=== PATIENT | female | born 1955 | race Caucasian/White ===

== ENCOUNTER 2017-11-25 21:13 | Inpatient (IN) | payer MEDICARE, MEDICAID ==
--- NOTE | 2017-11-25 21:36 | ED Physician Chart ---
ED Chief Complaint/HPI - Patient Information Date Seen:: 11/25/17 Time Seen:: 21:20 Chief Complaint:: agitation and confusion History of Present Illness:: Patient has been exhibiting increased agitation and confusion [facility]. Allergies:: Allergies Allergy/AdvReac Type Severity Reaction Status Date / Time No Known Allergies Allergy Verified 01/24/16 17:48 Vitals:: Vital Signs - 8 hr 11/25/17 21:15 Temp 98.3 F HR 75 RR 18 O2 Sat % 97 Review:: Transfer documents Reviewed ED Review of Systems - Review of Systems General/Constitutional: No fever, No chills, No weight loss, No weakness, No diaphoresis, No edema, No loss of appetite Skin: No skin lesions, No rash, No bruising Head: No headache, No light-headedness Eyes: No loss of vision, No pain, No diplopia ENT: No earache, No nasal drainage, No sore throat, No tinnitus Neck: No neck pain, No swelling, No thyromegaly, No stiffness, No mass noted Cardio Vascular: No chest pain, No palpitations, No PND, No orthopnea, No edema Pulmonary: No SOB, No cough, No sputum, No wheezing GI: No nausea, No vomiting, No diarrhea, No pain, No melena, No hematochezia, No constipation, No hematemesis G/U: No dysuria, No frequency, No hematuria Musculoskeletal: No bone or joint pain, No back pain, No muscle pain Endocrine: No polyuria, No polydipsia Psychiatric: No prior psych history, No depression, No anxiety, No suicidal ideation, Other (agitation) Hematopoietic: No bruising, No lymphadenopathy Allergic/Immuno: No urticaria, No angioedema Neurological: No syncope, No focal symptoms, No weakness, No paresthesia, No headache, No seizure, No dizziness, Confusion, No vertigo ED Past Medical History - Past Medical History Past Medical History: Other (psychosis; Thurmond's chorea; COPD; variety; depression; insomnia) Family History: Other (unavailable) Social History: Care Facility Surgical History: other (unavailable) Psychiatricy History: Depression Medication: Reviewed Family Medical History - Family Member Mother History Unknown: Yes Ethnicity: Non- Living Status: ED Physical Exam - Physical Examination General/Constitutional: Awake Other Gen/Cons comments:: Chronically ill-appearing; restless; nonverbal Head: Atraumatic Other Eyes comments:: Left enucleation Skin: No rash ENMT: External ears, nose nl Other ENMT comments:: Edentulous Neck: No nuchal rigidity Respiratory: Nl effort/Exclusion Cardio Vascular: RRR, No murmur, gallop, rubs GI: No tenderness/rebounding/guarding, Nondistended Extremities: No tenderness or effusion Neuro/Psych: No focal deficits ED Labs/Radiology/EKG Results - Lab Results Results: Laboratory Results - last 24 hr 11/25/17 11/25/17 22:39 22:39 WBC 5.6 RBC 4.11 Hgb 12.8 Hct 37.4 L MCV 90.9 MCH 31.2 H MCHC Differential 34.3 RDW 13.6 Plt Count 271 MPV 7.4 Neutrophils % 45.4 Lymphocytes % 33.9 Monocytes % 12.5 H Eosinophils % 7.5 H Basophils % 0.7 Sodium 138 Potassium 4.3 Chloride 106 Carbon Dioxide 28.0 Anion Gap 8.3 BUN 23 Creatinine 0.3 L Est GFR ( Amer) > 60.0 Est GFR (Non-Af Amer) > 60.0 BUN/Creatinine Ratio 76.7 Glucose 108 H Calcium 9.4 Total Bilirubin 0.2 L AST 19 ALT 23 Alkaline Phosphatase 59 Total Protein 6.7 Albumin 3.8 Globulin 2.9 Albumin/Globulin Ratio 1.3 Triglycerides 176 H Cholesterol 167 LDL Cholesterol Direct 100 HDL Cholesterol 44 - EKG Interpretations Rate & Rhythm: normal sinus rhythm with a rate of 79 [place]: normal axis Comments:: Early repolarization ED Septic Shock - . Is Septic Shock (SBP<90, OR Lactate>4 mmol\L) present?: No - <6hrs of presentation: Vital Signs: Vital Signs - 8 hr 11/25/17 21:15 Temp 98.3 F HR 75 RR 18 O2 Sat % 97 ED Reassessment (Disposition) - Reassessment Reassessment Condition:: Unchanged - Diagnosis Diagnosis:: Thurmond's chorea; agitation - Patient Disposition Admitted to:: [facility] Admitting Medical Physician:: Jay Donis Admitting Psych Physician:: Regla Pretty Condition at Disposition:: Stable, Unchanged
[2017-11-25 22:48] LABS: % BASOPHILS 0.7 % (0.0-2.0); % EOSINOPHILS 7.5 % (0.0-5.0); % LYMPHOCYTES 33.9 % (20.0-50.0); % MONOCYTES 12.5 % (2.0-10.0); % NEUTROPHILS 45.4 % (40.0-80.0); EOSINOPHILE ABSOLUTE 0.4 Th/cmm (0.1-0.4); HEMATOCRIT 37.4 % (41.0-60); HEMOGLOBIN 12.8 gm/dL (12-16); LYMPHOCYTE ABSOLUTE 1.9 Th/cmm (1.5-3.0); MEAN CELL VOLUME 90.9 fl (81-100); MEAN CORPUSCULAR HEMOGLOBIN 31.2 pg (27.0-31.0); MEAN CORPUSCULAR HGB CONC 34.3 pg (28.0-36.0); MEAN PLATELET VOLUME 7.4 fl; MONOCYTE ABSOLUTE 0.7 Th/cmm (0.3-1.0); NEUTROPHILE ABSOLUTE 2.6 Th/cmm (1.8-8.0); PLATELET COUNT 271 Th/cmm (150-400); RED BLOOD COUNT 4.11 Mil/cmm (3.80-5.10); RED CELL DISTRIBUTION WIDTH 13.6 % (11.5-20.0); WHITE BLOOD COUNT 5.6 Th/cmm (4.8-10.8)
[2017-11-25 23:04] LABS: ALB/GLOB RATIO 1.3 (1.0-1.8); ALBUMIN 3.8 gm/dL (3.7-5.3); ALKALINE PHOSPHATASE 59 U/L (34-104); ANION GAP 8.3 (7.0-16.0); BILIRUBIN,TOTAL 0.2 mg/dL (0.3-1.0); BUN - UREA NITROGEN 23 mg/dL (7-25); CALCIUM SERUM 9.4 mg/dL (8.6-10.3); CHLORIDE 106 mEq/L (98-107); CHOLESTEROL 167 mg/dL (<200); CREATININE - SERUM 0.3 mg/dL (0.6-1.2); GFR AFRICAN-AMERICAN > 60.0 ml/min (>90); GFR NON AFRICAN-AMERICAN > 60.0 ml/min; GLUCOSE 108 mg/dL (70-105); HDL -HIGH DENSITY LIPOPROTEIN 44 mg/dL (23-92); POTASSIUM SERUM 4.3 mEq/L (3.5-5.1); SGOT 19 U/L (13-39); SGPT/ALT 23 U/L (7-52); SODIUM SERUM 138 mEq/L (136-145); TOTAL PROTEIN,SERUM 6.7 gm/dL (6.0-8.3); TRIGLYCERIDES 176 mg/dL (<150)
--- NOTE | 2017-11-26 08:00 | Psychiatric Evaluation ---
DATE OF SERVICE: 11/25/2017 PSYCHIATRIC INITIAL EVALUATION AND MENTAL STATUS EXAM PATIENT'S AGE: 62. SEX: Female. PHYSICIAN: Regla Pretty M.D., M.P.H. CHIEF COMPLAINT: Agitation and irritability. HISTORY OF PRESENT ILLNESS: The patient is a 62-year-old female with a history of mental retardation. The patient was brought into the hospital because of confusion and agitation. The patient has been increasingly agitated and has been in irritable and angry mood. The patient also has been suspicious and has been paranoid and ___. She also has been unable to follow any of the staff directions and has been aggressive and has been in irritable and angry mood. The patient also has been feeling thus unable to follow any directions because of her mental disability. The patient also has been restless and has been fighting with restraints. PAST PSYCHIATRIC HISTORY: The patient has history of psychosis and agitation. PAST MEDICAL HISTORY: The patient has no major medical issues. She has history of Isaiah's chorea and COPD. SOCIAL HISTORY: The patient is in a residential. No known alcohol or drug use. ALLERGIES: No known allergies. MENTAL STATUS EXAMINATION: The patient appears her stated age. Restless. Fighting with soft restraints. Unable to answer any of the questions because of her mental disability. She is in irritable and angry mood. Actively responding. ASSESSMENT: PRIMARY DIAGNOSIS: Unspecified psychosis. SECONDARY DIAGNOSIS: Mental retardation, severe. MEDICAL DIAGNOSES: Isaiah's chorea, chronic obstructive pulmonary disease. TREATMENT PLAN: We will admit the patient to Geropsych Unit. Also, we will increase Seroquel to 100 mg 3 times a day. Also, monitor her behavior. ESTIMATED LENGTH OF STAY: 5-7 days. THE PATIENT'S STRENGTHS AND WEAKNESSES: The patient's strengths are that she has place she can return to. Weakness is her poor impulse control and irritability. AFTER DISCHARGE PLAN: The patient will return to her placement and outpatient treatment and followup. We will continue as an outpatient. [facility]# [id number]
[2017-11-26 10:24] VITALS: BP 134/74
[2017-11-26] MEDS ORDERED: Maalox 30 mL Cup PO PRN (10:26)
[2017-11-26] MEDS ORDERED: Magnesium Hydroxide (MOM) 30 mL UDC PO PRN (10:26)
[2017-11-26] MEDS ORDERED: guaiFENesin 200 MG/10 ML UDC PO PRN (10:32)
[2017-11-26] MEDS ORDERED: Albuterol Nebulizer 2.5mg/3mL HHN PRN ×2 (10:32)
[2017-11-26 21:04] LABS: A1C % 6.7 % (4.0-6.0)
--- NOTE | 2017-11-26 23:12 | History & Physical ---
ADMIT DATE: 11/26/2017 REASON FOR ADMISSION: Psychiatric disorder. HISTORY OF PRESENT ILLNESS: This is a 62-year-old female with underlying history of [place] chorea, asthma, GERD, mental disorder, and dementia; admitted for evaluation of underlying psychiatric illness by Dr. Pretty. Dr. Pretty requested medical H and P on this patient. During my evaluation, the patient was extremely confused, trying to undress herself repeatedly in spite of floor staff effort to put the clothes back. Unable to communicate at all or get any meaningful history from her. Most of the history obtained through other medical records. PAST MEDICAL HISTORY: GERD, asthma, mental disorder, and dementia. PAST SURGICAL HISTORY: No significant past surgical history. SOCIAL HISTORY: [facility] resident. No reported alcohol, tobacco, or street drug use. CURRENT MEDICATIONS: Tylenol, Maalox, albuterol, vitamin D3, Colace, Lexapro, Robitussin, heparin, Atarax, Ativan, milk of magnesia, Singulair, Protonix, Seroquel, and Ambien. REVIEW OF SYSTEMS: Unobtainable. PHYSICAL EXAMINATION: VITAL SIGNS: Temperature 97.2, pulse 74, respiratory rate 16, blood pressure 128/54, and 98% room air. GENERAL APPEARANCE: The patient does not look in any distress. HEART: S1, S2 normal. LUNGS: Clear. ABDOMEN: Soft. EXTREMITIES: No edema. ASSESSMENT: 1. Gastroesophageal reflux disease. 2. Asthma, stable. 3. Mental disorder. 4. Dementia. PLAN: Continue current psychotropic medications. Further evaluation and management per Dr. Pretty. The patient is medically stable. Fall precautions and aspiration precautions will be given. ____will be given. The patient's condition and plan of care discussed with the nursing staff. JOB# [id number]
[2017-11-27] MEDS: Pantoprazole 40 mg EC Tab PO SCH (09:43)
[2017-11-27] MEDS: Multivitamin Tab PO SCH (09:50)
--- NOTE | 2017-11-27 22:43 | Progress Notes ---
DATE: 11/27/[address] Pretty. Case was discussed with staff of the patient, reviewed records. This is a 62-year-old female who was admitted on 11/25/2017 because of agitation and irritability. The patient has been confused, agitated, angry, suspicious, paranoid, unable to follow staff direction, unable to participate in a meaningful conversation with a history of psychosis, agitation. The patient continues to be confused, continues to be unpredictable, impulsive, needing redirection, was started on Lexapro 10 mg a day and Seroquel that was increased yesterday to 6.5 mg twice a day and 100 mg at bedtime with no side effects, no sedation, no nausea, no extrapyramidal symptoms. We will continue to work with the patient in group therapy, milieu therapy, adjust medication as needed. JOB# [id number]
[2017-11-28] MEDS: Multivitamin Tab PO SCH (08:43)
[2017-11-28] MEDS: Pantoprazole 40 mg EC Tab PO SCH (08:43)
--- NOTE | 2017-11-28 17:53 | General Progress Note ---
Subjective - Review of Systems Service Date: 11/28/17 Subjective: Patient seen and examined awake but very confused Objective - Results Result Diagrams: 11/25/17 22:39 11/25/17 22:39 Recent Labs: Laboratory Last Values WBC 5.6 Th/cmm (4.8-10.8) 11/25/17 22:39 RBC 4.11 Mil/cmm (3.80-5.10) 11/25/17 22:39 Hgb 12.8 gm/dL (12-16) 11/25/17 22:39 Hct 37.4 % (41.0-60) L 11/25/17 22:39 MCV 90.9 fl (81-100) 11/25/17 22:39 MCH 31.2 pg (27.0-31.0) H 11/25/17 22:39 MCHC Differential 34.3 pg (28.0-36.0) 11/25/17 22:39 RDW 13.6 % (11.5-20.0) 11/25/17 22:39 Plt Count 271 Th/cmm (150-400) 11/25/17 22:39 MPV 7.4 fl 11/25/17 22:39 Neutrophils % 45.4 % (40.0-80.0) 11/25/17 22:39 Lymphocytes % 33.9 % (20.0-50.0) 11/25/17 22:39 Monocytes % 12.5 % (2.0-10.0) H 11/25/17 22:39 Eosinophils % 7.5 % (0.0-5.0) H 11/25/17 22:39 Basophils % 0.7 % (0.0-2.0) 11/25/17 22:39 Sodium 138 mEq/L (136-145) 11/25/17 22:39 Potassium 4.3 mEq/L (3.5-5.1) 11/25/17 22:39 Chloride 106 mEq/L (98-107) 11/25/17 22:39 Carbon Dioxide 28.0 mEq/L (21.0-31.0) 11/25/17 22:39 Anion Gap 8.3 (7.0-16.0) 11/25/17 22:39 BUN 23 mg/dL (7-25) 11/25/17 22:39 Creatinine 0.3 mg/dL (0.6-1.2) L 11/25/17 22:39 Est GFR ( Amer) > 60.0 ml/min (>90) 11/25/17 22:39 Est GFR (Non-Af Amer) > 60.0 ml/min 11/25/17 22:39 BUN/Creatinine Ratio 76.7 11/25/17 22:39 Glucose 108 mg/dL (70-105) H 11/25/17 22:39 Hemoglobin A1c % 6.7 % (4.0-6.0) H 11/25/17 22:39 Calcium 9.4 mg/dL (8.6-10.3) 11/25/17 22:39 Total Bilirubin 0.2 mg/dL (0.3-1.0) L 11/25/17 22:39 AST 19 U/L (13-39) 11/25/17 22:39 ALT 23 U/L (7-52) 11/25/17 22:39 Alkaline Phosphatase 59 U/L (34-104) 11/25/17 22:39 Total Protein 6.7 gm/dL (6.0-8.3) 11/25/17 22:39 Albumin 3.8 gm/dL (3.7-5.3) 11/25/17 22:39 Globulin 2.9 gm/dL 11/25/17 22:39 Albumin/Globulin Ratio 1.3 (1.0-1.8) 11/25/17 22:39 Triglycerides 176 mg/dL (<150) H 11/25/17 22:39 Cholesterol 167 mg/dL (<200) 11/25/17 22:39 LDL Cholesterol Direct 100 mg/dL (75-193) 11/25/17 22:39 HDL Cholesterol 44 mg/dL (23-92) 11/25/17 22:39 TSH 3.84 uIU/ml (0.34-5.60) 11/25/17 22:39 RPR NONREACTIVE (NONREACTIVE) 11/25/17 22:39 - Physical Exam Vitals and I&O: Vital Signs Temp 97.3 F 11/27/17 20:00 Pulse 81 11/28/17 08:00 Resp 18 11/28/17 08:27 BP 111/64 11/27/17 20:00 Pulse Ox 96 11/28/17 08:00 Intake & Output 11/27/17 11/28/17 11/28/17 18:59 06:59 18:59 Intake Total 600 Balance 600 Intake: Oral 600 Other: # Voids 3 # Bowel Movements 0 Active Medications: Current Medications Acetaminophen (Tylenol) 650 mg PO Q4HR PRN PRN Reason: Mild Pain / Temp above 100 Stop: 01/25/18 10:25 Al Hydrox/Mg Hydrox/Simethicone (Maalox) 30 ml PO Q4HR PRN PRN Reason: GI DISTRESS Stop: 01/25/18 10:25 Albuterol Sulfate (Albuterol 2.5mg/3ml Neb Ud) 2.5 mg HHN Q2HR PRN PRN Reason: Shortness of Breath or Wheeze Stop: 01/25/18 10:31 Cholecalciferol (Vitamin D3) 5,000 iu PO DAILY JOSE RAFAEL Stop: 01/26/18 08:59 Last Admin: 11/28/17 08:42 Dose: Not Given Docusate Sodium (Colace) 100 mg PO BID JOSE RAFAEL Stop: 01/25/18 16:59 Last Admin: 11/28/17 16:25 Dose: Not Given Escitalopram Oxalate (Lexapro) 10 mg PO DAILY JOSE RAFAEL; Protocol Stop: 01/26/18 08:59 Last Admin: 11/28/17 08:42 Dose: Not Given Guaifenesin (Robitussin) 100 mg PO Q4H PRN PRN Reason: Cough or Congestion Stop: 01/25/18 10:31 Heparin Sodium (Porcine) (Heparin) 5,000 units SUBQ Q12HR JOSE RAFAEL Stop: 01/25/18 20:59 Last Admin: 11/28/17 09:49 Dose: Not Given Hydroxyzine HCl (Atarax) 10 mg PO BID PRN; Protocol PRN Reason: Itching Stop: 01/25/18 10:31 Lorazepam (Ativan) 1 mg PO Q8H PRN; Protocol PRN Reason: Anxiety Stop: 01/25/18 10:31 Last Admin: 11/27/17 22:58 Dose: 1 mg Magnesium Hydroxide (Milk Of Magnesia) 30 ml PO HS PRN PRN Reason: Constipation Montelukast Sodium (Singulair) 10 mg PO QPM JOSE RAFAEL Stop: 01/25/18 16:59 Last Admin: 11/28/17 16:25 Dose: Not Given Multivitamins/Vitamin C (Theragran) 1 tab PO DAILY JOSE RAFAEL Stop: 01/26/18 08:59 Last Admin: 11/28/17 08:43 Dose: Not Given Pantoprazole Sodium (Protonix) 40 mg PO DAILY JOSE RAFAEL Stop: 01/26/18 08:59 Last Admin: 11/28/17 08:43 Dose: Not Given Quetiapine Fumarate (Seroquel) 37.5 mg PO BID JOSE RAFAEL; Protocol Stop: 01/25/18 16:59 Last Admin: 11/28/17 16:23 Dose: 37.5 mg Quetiapine Fumarate (Seroquel) 100 mg PO HS JOSE RAFAEL; Protocol Stop: 01/25/18 20:59 Last Admin: 11/27/17 21:21 Dose: 100 mg Zolpidem Tartrate (Ambien) 5 mg PO HS PRN PRN Reason: Insomnia Stop: 01/25/18 10:25 Cardiovascular: Regular rate Lungs: Clear to auscultation Assessment/Plan - Assessment Assessment: Asthma GERD Dementia Mental health disorder - Plan Plan: Continue current treatment Aspiration precaution Fall precaution Monitor vitals
--- NOTE | 2017-11-28 21:52 | Progress Notes ---
DATE: 11/28/2017 COVERING FOR: Regla Pretty M.D., M.P.H. PROGRESS IN THE UNIT: Case was discussed with staff of the patient, reviewed records. The patient continues to have episodes of agitation. She is still confused, suspicious, paranoid. She continues to need redirection, not responding sometimes well to redirection. She is compliant with the medication with no side effects, no sedation, no nausea, no extrapyramidal symptoms. PLAN: We will continue to work with the patient in group therapy and milieu therapy, adjust medications as needed. JOB# [id number]
[2017-11-29] MEDS: Multivitamin Tab PO SCH (10:01)
[2017-11-29] MEDS: Pantoprazole 40 mg EC Tab PO SCH (10:02)
[2017-11-30] MEDS: Multivitamin Tab PO SCH (10:12)
[2017-11-30] MEDS: Pantoprazole 40 mg EC Tab PO SCH (10:13)
--- NOTE | 2017-11-30 23:42 | Progress Notes ---
DATE: 11/30/2017 Chart reviewed and the patient interviewed. Also discussed the patient's condition with the staff and reviewed records and labs. The patient is confused. The patient also is less irritable and less anxious. She also seems to be slightly less agitated. The patient has been refusing morning medications, but she has been taking the evening one. The patient denies any side effects of medications. ASSESSMENT: The patient is still confused and agitated. TREATMENT PLAN: Continue current medications. The patient seems to be slightly improved. Also, continue to work on behavioral modification and continued followup. JOB# [id number]
--- NOTE | 2017-12-01 00:21 | Progress Notes ---
DATE: 11/29/2017 SUBJECTIVE: Chart reviewed and the patient interviewed. Also discussed the patient's condition with the staff and reviewed records and labs. The patient is still anxious and is still suspicious and paranoid. The patient also is still easily agitated. She also is interacting minimally with others. She also needs lots of redirections. She also constantly is trying to get out of the bed and the patient is restless and removing her hospital gown. The patient had to be given Ativan 1 mg yesterday emergency dose in order to calm her down. The patient also did not take the Seroquel yesterday morning, but she took the night dose. ASSESSMENT: The patient is still confused and agitated. TREATMENT PLAN: Continue to monitor her behavior and her condition closely. Also, continue adjusting psychotropic medications and work on behavioral modification. JOB# [id number]
[2017-12-01] MEDS: Multivitamin Tab PO SCH (09:48)
[2017-12-01] MEDS: Pantoprazole 40 mg EC Tab PO SCH (09:48)
[2017-12-02] MEDS: Multivitamin Tab PO SCH (10:15)
[2017-12-02] MEDS: Pantoprazole 40 mg EC Tab PO SCH (10:16)
--- NOTE | 2017-12-02 15:20 | General Progress Note ---
Subjective - Review of Systems Service Date: 12/02/17 Subjective: Patient seen and examined awake but very confused Objective - Results Result Diagrams: 11/25/17 22:39 11/25/17 22:39 Recent Labs: Laboratory Last Values WBC 5.6 Th/cmm (4.8-10.8) 11/25/17 22:39 RBC 4.11 Mil/cmm (3.80-5.10) 11/25/17 22:39 Hgb 12.8 gm/dL (12-16) 11/25/17 22:39 Hct 37.4 % (41.0-60) L 11/25/17 22:39 MCV 90.9 fl (81-100) 11/25/17 22:39 MCH 31.2 pg (27.0-31.0) H 11/25/17 22:39 MCHC Differential 34.3 pg (28.0-36.0) 11/25/17 22:39 RDW 13.6 % (11.5-20.0) 11/25/17 22:39 Plt Count 271 Th/cmm (150-400) 11/25/17 22:39 MPV 7.4 fl 11/25/17 22:39 Neutrophils % 45.4 % (40.0-80.0) 11/25/17 22:39 Lymphocytes % 33.9 % (20.0-50.0) 11/25/17 22:39 Monocytes % 12.5 % (2.0-10.0) H 11/25/17 22:39 Eosinophils % 7.5 % (0.0-5.0) H 11/25/17 22:39 Basophils % 0.7 % (0.0-2.0) 11/25/17 22:39 Sodium 138 mEq/L (136-145) 11/25/17 22:39 Potassium 4.3 mEq/L (3.5-5.1) 11/25/17 22:39 Chloride 106 mEq/L (98-107) 11/25/17 22:39 Carbon Dioxide 28.0 mEq/L (21.0-31.0) 11/25/17 22:39 Anion Gap 8.3 (7.0-16.0) 11/25/17 22:39 BUN 23 mg/dL (7-25) 11/25/17 22:39 Creatinine 0.3 mg/dL (0.6-1.2) L 11/25/17 22:39 Est GFR ( Amer) > 60.0 ml/min (>90) 11/25/17 22:39 Est GFR (Non-Af Amer) > 60.0 ml/min 11/25/17 22:39 BUN/Creatinine Ratio 76.7 11/25/17 22:39 Glucose 108 mg/dL (70-105) H 11/25/17 22:39 Hemoglobin A1c % 6.7 % (4.0-6.0) H 11/25/17 22:39 Calcium 9.4 mg/dL (8.6-10.3) 11/25/17 22:39 Total Bilirubin 0.2 mg/dL (0.3-1.0) L 11/25/17 22:39 AST 19 U/L (13-39) 11/25/17 22:39 ALT 23 U/L (7-52) 11/25/17 22:39 Alkaline Phosphatase 59 U/L (34-104) 11/25/17 22:39 Total Protein 6.7 gm/dL (6.0-8.3) 11/25/17 22:39 Albumin 3.8 gm/dL (3.7-5.3) 11/25/17 22:39 Globulin 2.9 gm/dL 11/25/17 22:39 Albumin/Globulin Ratio 1.3 (1.0-1.8) 11/25/17 22:39 Triglycerides 176 mg/dL (<150) H 11/25/17 22:39 Cholesterol 167 mg/dL (<200) 11/25/17 22:39 LDL Cholesterol Direct 100 mg/dL (75-193) 11/25/17 22:39 HDL Cholesterol 44 mg/dL (23-92) 11/25/17 22:39 TSH 3.84 uIU/ml (0.34-5.60) 11/25/17 22:39 RPR NONREACTIVE (NONREACTIVE) 11/25/17 22:39 - Physical Exam Vitals and I&O: Vital Signs Temp 0 F 12/01/17 06:05 Pulse 81 12/01/17 06:59 Resp 20 12/01/17 19:47 BP 111/64 11/27/17 20:00 Pulse Ox 94 12/01/17 06:59 Intake & Output 12/01/17 12/02/17 12/02/17 18:59 06:59 18:59 Other: # Voids 2 3 # Bowel Movements 0 Active Medications: Current Medications Acetaminophen (Tylenol) 650 mg PO Q4HR PRN PRN Reason: Mild Pain / Temp above 100 Stop: 01/25/18 10:25 Last Admin: 11/30/17 22:13 Dose: 650 mg Al Hydrox/Mg Hydrox/Simethicone (Maalox) 30 ml PO Q4HR PRN PRN Reason: GI DISTRESS Stop: 01/25/18 10:25 Albuterol Sulfate (Albuterol 2.5mg/3ml Neb Ud) 2.5 mg HHN Q2HR PRN PRN Reason: Shortness of Breath or Wheeze Stop: 01/25/18 10:31 Cholecalciferol (Vitamin D3) 5,000 iu PO DAILY JOSE RAFAEL Stop: 01/26/18 08:59 Last Admin: 12/02/17 10:15 Dose: 5,000 iu Docusate Sodium (Colace) 100 mg PO BID JOSE RAFAEL Stop: 01/25/18 16:59 Last Admin: 12/02/17 10:15 Dose: 100 mg Escitalopram Oxalate (Lexapro) 10 mg PO DAILY JOSE RAFAEL; Protocol Stop: 01/26/18 08:59 Last Admin: 12/02/17 10:15 Dose: 10 mg Guaifenesin (Robitussin) 100 mg PO Q4H PRN PRN Reason: Cough or Congestion Stop: 01/25/18 10:31 Heparin Sodium (Porcine) (Heparin) 5,000 units SUBQ Q12HR JOSE RAFAEL Stop: 01/25/18 20:59 Last Admin: 12/02/17 10:15 Dose: Not Given Hydroxyzine HCl (Atarax) 10 mg PO BID PRN; Protocol PRN Reason: Itching Stop: 01/25/18 10:31 Lorazepam (Ativan) 1 mg PO Q8H PRN; Protocol PRN Reason: Anxiety Stop: 01/25/18 10:31 Last Admin: 12/02/17 13:30 Dose: 1 mg Magnesium Hydroxide (Milk Of Magnesia) 30 ml PO HS PRN PRN Reason: Constipation Montelukast Sodium (Singulair) 10 mg PO QPM JOSE RAFAEL Stop: 01/25/18 16:59 Last Admin: 12/01/17 17:08 Dose: 10 mg Multivitamins/Vitamin C (Theragran) 1 tab PO DAILY JOSE RAFAEL Stop: 01/26/18 08:59 Last Admin: 12/02/17 10:15 Dose: 1 tab Pantoprazole Sodium (Protonix) 40 mg PO DAILY JOSE RAFAEL Stop: 01/26/18 08:59 Last Admin: 12/02/17 10:16 Dose: 40 mg Quetiapine Fumarate (Seroquel) 100 mg PO HS JOSE RAFAEL; Protocol Stop: 01/25/18 20:59 Last Admin: 12/01/17 21:05 Dose: 100 mg Quetiapine Fumarate (Seroquel) 50 mg PO BID JOSE RAFAEL; Protocol Stop: 01/31/18 08:59 Last Admin: 12/02/17 10:16 Dose: 50 mg Zolpidem Tartrate (Ambien) 5 mg PO HS PRN PRN Reason: Insomnia Stop: 01/25/18 10:25 Last Admin: 11/30/17 22:18 Dose: 5 mg Cardiovascular: Regular rate Lungs: Clear to auscultation Assessment/Plan - Assessment Assessment: Asthma GERD Dementia Mental health disorder - Plan Plan: Continue current treatment Aspiration precaution Fall precaution Monitor vitals Nutritional Asmnt/Malnutr-PDOC - Dietary Evaluation Malnutrition Findings (Please click <Entered> for more info): Nutritional Asmnt/Malnutrition Start: 11/29/17 14: 13 Text: Status: Complete Freq: Protocol: Document 11/29/17 14:13 [email or web address] (Rec: 11/29/17 14:20 BERT [email or web address]) Nutritional Asmnt/Malnutrition Patient General Information Nutritional Screening Moderate Risk Diagnosis psychosis NOS Pertinent Medical Hx/Surgical Hx GERD, asthma, mental disorder, dementia Subjective Information Per EMR, PO intake 25-50% of meals on 11/27. Per nurse note, Pt consumed 10-20% of meals on 11/28 because pt was asleep most of day d/t medication. Current Diet Order/ Nutrition Support pureed Pertinent Medications vit D3, colace, theragran, protonix, seroquel Pertinent Labs 11/25 Cr 0.3, glucose 108, A1c 6.7 Nutritional Hx/Data Height 1.47 m Height (Calculated Centimeters) 147.3 Current Weight (lbs) 43.091 kg Weight (Calculated Kilograms) 43.1 Weight (Calculated Grams) 18475.3 [place] Body Weight 96 Body Mass Index (BMI) 19.8 Weight Status Approriate GI Symptoms GI Symptoms None Last BM 11/29 Difficult in: None Skin Integrity/Comment: bruise Estimated Nutritional Goals BEE in Kcals: Using Current wt Calories/Kcals/Kg 25-30 Kcals Calculated 2342-8823 Protein: Using Current wt Protein g/k Protein Calculated 43 Fluid: ml 1075-1290ml (1ml/kcal) Nutritional Problem 1. Problem Problem inadequate food intake Etiology possible mental status Signs/Symptoms: PO intake 10-50% Intervention/Recommendation Comments 1. Continue with current diet as ordered. Nurse to assist pt with meals. If PO intake continue <50%, will consider adding oral supplement. 2. Monitor PO intake, wt, labs and skin integrity 3. F/U as high risk in 2-3 days, 12/01-12/02 Expected Outcomes/Goals Expected Outcomes/Goals 1. PO intake to meet at least 75% of nutritional needs. 2. Wt stability, skin to remain intact, labs to approach WNL.
[2017-12-03] MEDS: Pantoprazole 40 mg EC Tab PO SCH (08:49)
[2017-12-03] MEDS: Multivitamin Tab PO SCH (08:49)
--- NOTE | 2017-12-04 08:00 | Progress Notes ---
DATE: 12/01/2017 DATE: 12/01/2017 SUBJECTIVE: Chart reviewed and the patient interviewed. Also discussed the patient's condition with the staff and reviewed records and labs. The patient is still anxious and is still in irritable mood. The patient also is still suspicious and still needs lots of redirections. She also still at times gets agitated, but seems to be less than before. She also at time is selective with her medications. Otherwise, the patient is compliant with taking medications and no side effects of the medications when she takes it. ASSESSMENT: The patient is still psychotic, but seems to be less than before. TREATMENT PLAN: Continue current treatment and current medications. Also, continue working on her compliance with taking her medications and continue to follow up. JOB# [id number]
[2017-12-04] MEDS: Pantoprazole 40 mg EC Tab PO SCH (08:54)
[2017-12-04] MEDS: Multivitamin Tab PO SCH (08:54)
--- NOTE | 2017-12-04 10:21 | Progress Notes ---
DATE: 12/01/2017 PSYCHIATRIC PROGRESS NOTE DATE OF SERVICE: 12/01/2017 No dictation. [facility]# [id number]
--- NOTE | 2017-12-04 18:35 | Progress Notes ---
DATE: 12/02/2017 SUBJECTIVE: Chart reviewed and the patient interviewed. Also, discussed the patient's condition with the staff and reviewed records and labs. The patient is confused and she is still disoriented. The patient also is still restless and anxious and have difficulty following directions. She also is selectively mute. The patient also seems to be depressed at times and not to be left alone. Otherwise, the patient is compliant with taking medications with no side effects. ASSESSMENT: The patient is still agitated and psychotic. TREATMENT PLAN: Continue to monitor her behavior and condition closely. Also, we will increase Seroquel to 50 mg twice a day and 100 mg at bedtime and continue Lexapro 10 mg every day. [facility]# [id number]
--- NOTE | 2017-12-04 19:04 | Progress Notes ---
DATE: 12/03/2017 SUBJECTIVE: Chart reviewed and the patient interviewed. Also discussed the patient's condition with the staff and reviewed records and labs. The patient is still easily agitated and is easily irritable. She also is still resisting care. Also, she has disorganized thoughts. Also, in irritable mood and needs lots of redirections. Otherwise, the patient is compliant with taking her medications with no side of medications. ASSESSMENT: The patient is still agitated and is still in irritable mood. TREATMENT PLAN: Continue to monitor her behavior and her condition closely. Also, continue adjusting psychotropic medications and working on her irritability and continue to follow up. JOB# [id number]
--- NOTE | 2017-12-05 02:54 | Progress Notes ---
DATE: 12/04/2017 SUBJECTIVE: Chart reviewed and the patient interviewed. Also discussed the patient's condition with the staff and reviewed records and labs. The patient is still easily agitated. The patient also is still taking off her gown and she is still in irritable and angry mood. She also is still depressed and withdrawn. She also is trying to get off the chair. Also, resisting care. Otherwise, the patient is compliant with taking her medications. ASSESSMENT: The patient is still agitated and psychotic. TREATMENT PLAN: Continue to monitor behavior and condition closely. We will also followup. The patient continued to take Lexapro 10 mg every day and Seroquel 50 mg twice a day and 100 mg at bedtime. JOB# [id number]
[2017-12-05] MEDS: Pantoprazole 40 mg EC Tab PO SCH (08:21)
[2017-12-05] MEDS: Multivitamin Tab PO SCH (08:22)
[2017-12-06] MEDS: Multivitamin Tab PO SCH (08:50)
[2017-12-06] MEDS: Pantoprazole 40 mg EC Tab PO SCH (08:50)
[2017-12-07] MEDS: Pantoprazole 40 mg EC Tab PO SCH (08:56)
[2017-12-07] MEDS: Multivitamin Tab PO SCH (08:57)
== END 2017-12-07 15:20 | DRG 885 ==
LOC: ER 21:13 → GERO 23:25
PROVIDERS: ADMIT Psychiatry & Neurology Psychiatry; ATTEND Psychiatry & Neurology Psychiatry
DX: F23 Brief psychotic disorder (principal); F72 Severe intellectual disabilities; G10 Huntington's disease; J44.9 Chronic obstructive pulmonary disease, unspecified; K21.9 Gastro-esophageal reflux disease without esophagitis; F32.9 Major depressive disorder, single episode, unspecified; F03.90 Unspecified dementia, unspecified severity, without behavioral disturbance, psychotic disturbance, mood disturbance, and anxiety; F41.9 Anxiety disorder, unspecified
CPT/HCPCS: 36415-UA; 80053-TC; 80061-TC; 83036-90; 84443-TC; 85025-TC; 86592-TC; 93005; 94760; J1644; J2060; Z7610

== ENCOUNTER 2018-03-09 21:17 | Inpatient (IN) | payer MEDICARE, MEDICAID ==
--- NOTE | 2018-03-09 21:37 | ED Physician Chart ---
ED Chief Complaint/HPI - Patient Information Date Seen:: 03/09/18 Time Seen:: 21:10 Chief Complaint:: Poor Oral Intake History of Present Illness:: onset x 3 days of poor oral intake, agitation, hostile behavior, and failure to thrive; no report of trauma, LOC, AMS, ALOC, H/As, S/T, neck pain, cough, C/P, SOB, Abd. Pain, A/N/V/D/C, fever, chills, or urinary s/s Allergies:: Allergies Allergy/AdvReac Type Severity Reaction Status Date / Time No Known Allergies Allergy Verified 01/24/16 17:48 Historian:: Patient, EMS Review:: Nurse's Note Reviewed, Old Chart Reviewed, EMS run form Reviewed ED Review of Systems - Review of Systems General/Constitutional: Fever, No chills, No weight loss, Weakness, No diaphoresis, No edema, No loss of appetite Skin: No skin lesions, No rash, No bruising Head: No headache, No light-headedness Eyes: No loss of vision, No pain, No diplopia ENT: No earache, No nasal drainage, No sore throat, No tinnitus Neck: No neck pain, No swelling, No thyromegaly, No stiffness, No mass noted Cardio Vascular: No chest pain, No palpitations, No PND, No orthopnea, No edema Pulmonary: No SOB, No cough, No sputum, No wheezing GI: No nausea, No vomiting, No diarrhea, No pain, No melena, No hematochezia, No constipation, No hematemesis G/U: No dysuria, No frequency, No hematuria, No nacturia Hardware Manager: No vaginal discharge, No abnormal vaginal bleed, No contraction Musculoskeletal: No bone or joint pain, No back pain, No muscle pain Endocrine: No polyuria, No polydipsia Psychiatric: Prior psych history, Depression, Anxiety, No suicidal ideation, No homicidal ideation, No auditory hallucination, No visual hallucination Hematopoietic: No bruising, No lymphadenopathy Allergic/Immuno: No urticaria, No angioedema Neurological: No syncope, No focal symptoms, Weakness, No paresthesia, No headache, No seizure, No dizziness, Confusion, No vertigo, Other (Tremors) ED Past Medical History - Past Medical History Obtainable: Yes Past Medical History: HTN, Asthma/COPD, Dyslipidemia, PUD/GERD, Arthritis, Dementia, Other (Isaiah's Chorea) Family History: HTN Social History: Non Smoker, No Alcohol, No Drug Use, Single, Care Facility Surgical History: None Psychiatricy History: Bipolar, Dementia Medication: Reviewed Family Medical History - Family Member Mother History Unknown: Yes Ethnicity: Non- Living Status: ED Physical Exam - Physical Examination General/Constitutional: Awake, Well-developed, well-nourished, Alert, No distress, GCS 15, Non-toxic appearing, Ambulatory Head: Atraumatic Eyes: Lids, conjuctiva normal, PERRL, EOMI Skin: Nl inspection, No rash, No skin lesions, No ecchymosis, Well hydrated, No lymphadenopathy ENMT: External ears, nose nl, TM canals nl, Nasal exam nl, Lips, teeth, gums nl , Oropharynx nl, Tonsils nl Neck: Nontender, Full ROM w/o pain, No JVD, No nuchal rigidity, No bruit, No mass, No stridor Respiratory: Nl effort/Exclusion, Clear to Auscultation, No Wheeze/Rhonchi/Rales Cardio Vascular: RRR, No murmur, gallop, rubs, NL S1 S2, Carotid/Femoral/Distal pulses equal bilaterally GI: No tenderness/rebounding/guarding, No organomegaly, No hernia, Normal BS's, Nondistended, No mass/bruits, No McBurney tenderness : No CVA tenderness Extremities: No tenderness or effusion, Full ROM, normal strength in all extremities, No edema, Normal digits & nails Neuro/Psych: Alert/oriented, DTR's symmetric, Normal sensory exam, Normal motor strength, Judgement/insight normal, Mood normal, Normal gait, No focal deficits Misc: Normal back, No paraspinal tenderness ED Labs/Radiology/EKG Results - Lab Results Comments:: Reviewed - EKG Interpretations EKG Time:: 21:40 Rate & Rhythm: 94; NSR Comments:: non-specific st-t changes ED Septic Shock - . Is Septic Shock (SBP<90, OR Lactate>4 mmol\L) present?: No ED Reassessment (Disposition) - Reassessment Reassessment Condition:: Improved - Diagnosis Diagnosis:: Dx: Weakness; Failure to Thrive; Poor oral Intake; Medical Clearance; Agitation ; Dementia; Psychosis; Bipolar Disorder - Aftercare/Follow up Instructions Aftercare/Follow-Up Instructions:: Counseled pt regarding lab results/diagnosis & need follow up, Counseled pt & family regarding lab results/diagnosis & need follow up - Patient Disposition Discharge/Transfer:: Acute Care w/in this hosp Admitted to:: [facility] Condition at Disposition:: Stable, Improved
[2018-03-09] MEDS ORDERED: Haloperidol Lactate 5 mg/mL 1mL Vial IM STA (21:52)
[2018-03-09 22:01] LABS: % BASOPHILS 0.5 % (0.0-2.0); % EOSINOPHILS 6.6 % (0.0-5.0); % LYMPHOCYTES 37.5 % (20.0-50.0); % MONOCYTES 10.8 % (2.0-10.0); % NEUTROPHILS 44.6 % (40.0-80.0); EOSINOPHILE ABSOLUTE 0.4 Th/cmm (0.1-0.4); HEMATOCRIT 36.9 % (41.0-60); HEMOGLOBIN 12.3 gm/dL (12-16); LYMPHOCYTE ABSOLUTE 2.2 Th/cmm (1.5-3.0); MEAN CELL VOLUME 90.6 fl (81-100); MEAN CORPUSCULAR HEMOGLOBIN 30.2 pg (27.0-31.0); MEAN CORPUSCULAR HGB CONC 33.4 pg (28.0-36.0); MEAN PLATELET VOLUME 7.4 fl; MONOCYTE ABSOLUTE 0.6 Th/cmm (0.3-1.0); NEUTROPHILE ABSOLUTE 2.7 Th/cmm (1.8-8.0); PLATELET COUNT 243 Th/cmm (150-400); RED BLOOD COUNT 4.07 Mil/cmm (3.80-5.10); RED CELL DISTRIBUTION WIDTH 13.3 % (11.5-20.0); WHITE BLOOD COUNT 5.9 Th/cmm (4.8-10.8)
[2018-03-09] MEDS ORDERED: Haloperidol Lactate 5 mg/mL 1mL Vial ONE (22:03)
[2018-03-09 22:16] LABS: INR 0.96 (0.5-1.4)
[2018-03-09 22:21] LABS: TROP I 0.01 ng/mL (0.01-0.05)
[2018-03-09 22:23] LABS: ACETAMINOPHEN < 10.0 ug/mL (10.0-30.0); ALB/GLOB RATIO 1.2 (1.0-1.8); ALBUMIN 3.9 gm/dL (3.7-5.3); ALKALINE PHOSPHATASE 53 U/L (34-104); ANION GAP 11.9 (7.0-16.0); BILIRUBIN,TOTAL 0.3 mg/dL (0.3-1.0); BUN - UREA NITROGEN 25 mg/dL (7-25); CALCIUM SERUM 9.4 mg/dL (8.6-10.3); CARBON DIOXIDE 26.1 mEq/L (21.0-31.0); CHLORIDE 104 mEq/L (98-107); CHOLESTEROL 145 mg/dL (<200); CREATININE - SERUM 0.3 mg/dL (0.6-1.2); CREATININE KINASE 76 U/L (30-223); GFR AFRICAN-AMERICAN > 60.0 ml/min (>90); GFR NON AFRICAN-AMERICAN > 60.0 ml/min; GLUCOSE 111 mg/dL (70-105); HDL -HIGH DENSITY LIPOPROTEIN 42 mg/dL (23-92); SGOT 16 U/L (13-39); SGPT/ALT 12 U/L (7-52); SODIUM SERUM 138 mEq/L (136-145); TOTAL PROTEIN,SERUM 7.3 gm/dL (6.0-8.3); TRIGLYCERIDES 67 mg/dL (<150)
[2018-03-09 22:25] LABS: SALICYLATES (ASPIRIN) < 25.0 mg/L (30.0-100.0)
[2018-03-10 00:28] LABS: URINE SOURCE MIDSTREAM
[2018-03-10 00:30] LABS: URINE BILIRUBIN NEGATIVE (NEGATIVE); URINE BLOOD NEGATIVE (NEGATIVE); URINE GLUCOSE (UA) NEGATIVE (NEGATIVE); URINE KETONE NEGATIVE (NEGATIVE); URINE LEUKOCYTE ESTERASE NEGATIVE (NEGATIVE); URINE NITRATE NEGATIVE (NEGATIVE); URINE PROTEIN NEGATIVE (NEGATIVE); URINE UROBILINOGEN 0.2 E.U./dL (0.2 - 1.0)
[2018-03-10 00:37] LABS: URINE CLARITY CLEAR (CLEAR); URINE COLOR YELLOW
[2018-03-10 00:43] LABS: URINE MICROSCOPIC INDICATED? YES
[2018-03-10 00:46] LABS: URINE EPITHELIAL CELLS RARE /lpf (FEW); URINE RBC NONE SEEN /hpf (0-5); URINE WBC 0-2 /hpf (0-5)
[2018-03-10 00:47] LABS: URINE BACTERIA NONE SEEN /hpf (NONE SEEN)
[2018-03-10 06:35] VITALS: BP 113/77
[2018-03-10] MEDS ORDERED: Magnesium Hydroxide (MOM) 30 mL UDC PO PRN (07:54)
--- NOTE | 2018-03-10 09:01 | Diagnostic Imaging Report ---
Portable chest x-ray HISTORY: Pain Allowing for patient rotation, the heart size is normal. Atherosclerotic calcination seen in the aorta. No acute pulmonary processes. Severe scoliosis and degenerative changes within the spine. IMPRESSION: 1. No acute abnormalities 2. Severe scoliosis 3. Atherosclerotic vascular changes
[2018-03-10] MEDS ORDERED: Albuterol Nebulizer 2.5mg/3mL HHN PRN (09:57)
[2018-03-10] MEDS ORDERED: Simethicone 20 mg/0.3 mL 30mL Bottle PO PRN (10:02)
[2018-03-10] MEDS: Pantoprazole 40 mg/Packet PO SCH (10:20)
--- NOTE | 2018-03-10 12:02 | Psychiatric Evaluation ---
DATE OF SERVICE: PSYCHIATRIC INITIAL EVALUATION AND MENTAL STATUS EXAM PATIENT'S AGE: 62-year-old. SEX: Female. PHYSICIAN: Dr. Pretty. CHIEF COMPLAINT: Agitation and aggressive behavior. HISTORY OF PRESENT ILLNESS: The patient is a 62-year-old female who is developmentally disabled. The patient was transferred from a nursing facility because of increased agitation and increased irritability. The patient also upon arrival to the Emergency Room was aggressive and fighting with the staff to the point that the staff in the ER would not be able to get her vital signs. She also was not able to answer any of my questions because the staff has to give her Haldol, Ativan and Benadryl, which made her sleepy and sedated and not able to answer any of my questions. The patient also has been easily angry and agitated. PAST PSYCHIATRIC HISTORY: The patient has history of developmental disabled. PAST MEDICAL HISTORY: Noncontributory. SOCIAL HISTORY: The patient lives in a group home. No known alcohol or drug use. ALLERGIES: No known allergies. MENTAL STATUS EXAMINATION: The patient appears older than her stated age. Sedated. Not able to answer any of my questions because of her sedation. The patient is sedated and unable to answer questions regarding orientation or memory or suicidal or homicidal or hallucinations. ASSESSMENT: PRIMARY DIAGNOSIS: Unspecified psychosis. SECONDARY DIAGNOSIS: Developmental history of disability. TREATMENT PLAN: We will place the patient on 5150 hold. We will admit the patient to Geropsych Unit to stabilize her condition and her medications. ESTIMATED LENGTH OF STAY: 5-7 days. THE PATIENT'S STRENGTHS AND WEAKNESSES: The patient has support from staff in the group home. Weaknesses is her agitation and her poor impulse control. AFTER DISCHARGE PLAN: The patient will return to the facility with plans for treatment there. JOB# [id number]
[2018-03-11] MEDS: Multivitamin w/ Minerals Tab PO SCH (08:36)
[2018-03-11] MEDS: Pantoprazole 40 mg/Packet PO SCH (08:36)
[2018-03-11 10:34] LABS: CHOLESTEROL 161 mg/dL (<200); HDL -HIGH DENSITY LIPOPROTEIN 43 mg/dL (23-92); TRIGLYCERIDES 77 mg/dL (<150)
[2018-03-12] MEDS: Multivitamin w/ Minerals Tab PO SCH (09:20)
[2018-03-12] MEDS: Pantoprazole 40 mg/Packet PO SCH (09:20)
--- NOTE | 2018-03-12 19:13 | Progress Notes ---
DATE: 03/11/2018 SUBJECTIVE: Chart reviewed and the patient interviewed. Also, discussed the patient's condition with the staff and reviewed records and labs. The patient is still extremely irritable and extremely agitated. The patient also is still confused and rambling and she is unable to carry on any coherent conversation. The patient also is still paranoid. Otherwise, the patient seems to be slightly easier to redirect her. ASSESSMENT: The patient is still psychotic and agitated. TREATMENT PLAN: Continue to monitor behavior and condition closely. Also, continue working on the ramifications and adjusting psychotropic medications. JOB# [id number]
--- NOTE | 2018-03-13 07:32 | Progress Notes ---
DATE: 03/12/2018 SUBJECTIVE: The patient was seen and evaluated. The patient's chart reviewed. Covering for Dr. Pretty. The patient initially came in here because the patient presented very agitated and aggressive behavior. In the hospital course, the patient is currently being treated with Colace, vitamin D, Lexapro 10 mg, Seroquel 100 mg at bedtime. Today on [id number] evaluation, the patient is in observation room, lying in the position and is mostly talking in and out. When attempted to interview her, the patient is nonverbal disengaged, and just kind of restless. MENTAL STATUS EXAMINATION: Restless, disengaged, nonverbal. ASSESSMENT AND PLAN: The patient is a 62-year-old female with a history of neurocognitively impaired ____. Continue with the current medication regime. We will obtain more collateral baseline information. JOB# [id number]
[2018-03-13] MEDS: Multivitamin w/ Minerals Tab PO SCH (09:10)
[2018-03-13] MEDS: Pantoprazole 40 mg/Packet PO SCH (09:11)
--- NOTE | 2018-03-14 03:56 | Progress Notes ---
DATE: 03/13/2018 SUBJECTIVE: The patient was seen and evaluated. The patient's chart reviewed. This is psychiatric followup note covering for Dr. Pretty. Today on [id number] evaluation, she continues to be disorganized, pacing nonverbal, disengaged. MENTAL STATUS EXAMINATION: Nonverbal, disengaged, restless. ASSESSMENT AND PLAN: The patient is a 62-year-old female, nonverbal with history of schizoaffective disorder, disengaged. We will continue monitoring and evaluating as medication continue to build steady state. JOB# [id number]
[2018-03-14] MEDS: Multivitamin w/ Minerals Tab PO SCH (08:44)
[2018-03-14] MEDS: Pantoprazole 40 mg/Packet PO SCH (08:44)
[2018-03-15] MEDS: Pantoprazole 40 mg/Packet PO SCH (10:17)
[2018-03-15] MEDS: Multivitamin w/ Minerals Tab PO SCH (10:17)
--- NOTE | 2018-03-15 15:35 | Progress Notes ---
DATE: SUBJECTIVE: Chart reviewed and the patient interviewed. Also discussed the patient's condition with the staff and reviewed records and labs. The patient is still extremely agitated and is in irritable mood. She is also confused. The patient is lying in the floor and crawling, nonstop, and is not able to redirect her or to calm her down. The patient also still gets aggressive and agitated when staff tries to help her with her ADLs. Although the patient is taking Seroquel in a relatively high dose for her weight, which is 100 mg twice a day, yet she is not responding well to Seroquel. PLAN: We will plan to decrease Seroquel to 100 mg at bedtime. Also, we will start the patient on Zyprexa 5 mg twice a day and with plan to cross titrating Zyprexa and Seroquel. Also, we will add Klonopin in a dose of 0.5 mg twice a day. The patient is extremely agitated and needs to be calmed down and we will work on her agitation and continue to follow up. JOB# [id number]
--- NOTE | 2018-03-15 16:35 | Progress Notes ---
DATE: Covering for Dr. Pretty. Case was discussed with staff of the patient, reviewed records. This is a 62-year-old female who was admitted on 03/10/2018. She was aggressive, agitated lady who is developmentally disabled. She was transferred from a nursing facility because of increasing agitation and irritability. The patient is fighting with the staff. Unable to answer questions, unpredictable, impulsive, needing redirection, very poor insight. Continues to have episodes of agitation. Continues to have poor insight. Unable to carry out conversation or make safe plan for self-care. No side effects with the medication, no sedation, no nausea and no extrapyramidal symptoms. She is on Lexapro 10 mg a day as well as olanzapine 10 mg twice a day and Seroquel 100 mg at bedtime and we will continue outpatient group therapy, milieu therapy, and adjust medications as needed. JOB# [id number]
[2018-03-16] MEDS: Multivitamin w/ Minerals Tab PO SCH (09:26)
[2018-03-16] MEDS: Betamethasone/Clotrimazole Cream 15 gm Tube TP SCH ×2 (09:28→17:13)
[2018-03-16] MEDS: Pantoprazole 40 mg/Packet PO SCH (09:28)
[2018-03-17] MEDS: Pantoprazole 40 mg/Packet PO SCH (08:27)
[2018-03-17] MEDS: Multivitamin w/ Minerals Tab PO SCH (08:27)
[2018-03-17] MEDS: Betamethasone/Clotrimazole Cream 15 gm Tube TP SCH ×2 (09:31→16:22)
[2018-03-18] MEDS: Pantoprazole 40 mg/Packet PO SCH (08:24)
[2018-03-18] MEDS: Multivitamin w/ Minerals Tab PO SCH (08:24)
[2018-03-18] MEDS: Betamethasone/Clotrimazole Cream 15 gm Tube TP SCH ×2 (08:25→17:01)
--- NOTE | 2018-03-18 09:56 | Progress Notes ---
DATE: 03/17/2018 SUBJECTIVE: Chart reviewed and the patient interviewed. Also discussed the patient's condition with the staff and reviewed records and labs. The patient is still anxious and she is still in irritable mood. The patient also is still suspicious and is paranoid. She is also easily agitated. The patient also is trying to take off her clothes all the time for no apparent reason except that she is confused and agitated. Otherwise, the patient is compliant with taking her medications. ASSESSMENT: The patient is still psychotic and agitated. TREATMENT PLAN: Continue to monitor her behavior and her condition closely. Also, continue adjusting psychotropic medications and followup. JOB# [id number]
--- NOTE | 2018-03-18 10:11 | Progress Notes ---
DATE: 03/16/2018 PSYCHIATRIC PROGRESS NOTE SUBJECTIVE: Chart reviewed and the patient interviewed. Also discussed the patient's condition with the staff and reviewed records and labs. The patient continued to be extremely irritable and agitated. The patient also continuously taking off her clothes. She also is still unable to follow any of staff directions simply because of her mental disability. The patient also is suspicious and is paranoid. She also is still needs lots of redirections. Otherwise, the patient is compliant with taking her medications with no side effects of medications. ASSESSMENT: The patient is still psychotic and is still agitated. TREATMENT PLAN: Continue to monitor her behavior and her condition closely. Also, continue adjusting psychotropic medications and work on behavioral modification. [facility]# [id number]
--- NOTE | 2018-03-18 22:17 | Progress Notes ---
DATE: SUBJECTIVE: Chart reviewed and the patient interviewed. Also discussed the patient's condition with the staff and reviewed records and labs. The patient is still anxious and she is still in irritable mood and she is still severely agitated and unable to follow any of staff directions. The patient also is taking off her clothes, guarding staff trying to help her to stay decent. She also is still unable to control her temper mostly because of her mental disabilities. She also gets aggressive with the staff when they tried to help with her ADLs. Otherwise, no side effects of Seroquel. ASSESSMENT: The patient is still agitated and psychotic. TREATMENT PLAN: Continue to monitor her behavior and her condition closely. Also, we will increase Seroquel to 50 mg twice a day and 100 mg at bedtime and we will continue to follow up closely. JOB# [id number]
[2018-03-19] MEDS: Betamethasone/Clotrimazole Cream 15 gm Tube TP SCH ×2 (10:00→17:18)
[2018-03-19] MEDS: Pantoprazole 40 mg/Packet PO SCH (10:00)
[2018-03-19] MEDS: Multivitamin w/ Minerals Tab PO SCH (10:00)
--- NOTE | 2018-03-19 23:29 | Progress Notes ---
DATE: 03/19/[address] Pretty. SUBJECTIVE: Case was discussed with staff of the patient, reviewed records. This is a well-known case to me as I have seen her this week, covering for Dr. Pretty. The patient today is in the observation room. She was naked. She is developmentally disabled. She is still anxious, irritable, and easily agitated, taking off her clothes. She continues to be unable to formulate a safe plan for self-care. She continues to have poor insight, unpredictable, and impulsive. She is on Lexapro 10 mg daily, olanzapine 10 mg twice a day, and Seroquel 100 mg at bedtime that was increased yesterday. I also added 50 mg twice a day and with no sedation, no nausea, and no extrapyramidal symptoms. We will continue to work with the patient in group therapy, milieu therapy, and adjust the medications as needed. JOB# [id number]
[2018-03-20] MEDS: Multivitamin w/ Minerals Tab PO SCH (09:52)
[2018-03-20] MEDS: Pantoprazole 40 mg/Packet PO SCH (09:52)
[2018-03-20] MEDS: Betamethasone/Clotrimazole Cream 15 gm Tube TP SCH ×2 (09:56→17:14)
--- NOTE | 2018-03-20 20:53 | Progress Notes ---
DATE: 03/20/2018 SUBJECTIVE: Case was discussed with staff of the patient, reviewed records. The patient continues to be disrobing herself. She continues to be easily agitated. She continues to have poor insight, unable to carry on a conversation or make safe plan for self-care. She is needing constant redirection. She was in isolation because of her disrobing behavior, ____ naked. No side effects with the medication, no sedation, no nausea and no extrapyramidal symptoms. Seroquel dose was increased to 50 mg twice a day and 100 mg at bedtime. She is also on olanzapine 10 mg twice a day. No side effects with the medication, no sedation, no nausea, and no extrapyramidal symptoms. We will continue to work with the patient in group therapy, milieu therapy, and adjust the medications as needed. JOB# [id number]
[2018-03-21] MEDS: Multivitamin w/ Minerals Tab PO SCH (08:36)
[2018-03-21] MEDS: Pantoprazole 40 mg/Packet PO SCH (08:38)
[2018-03-21] MEDS: Betamethasone/Clotrimazole Cream 15 gm Tube TP SCH (09:26)
--- NOTE | 2018-03-21 19:59 | Discharge Summary ---
DATE OF DISCHARGE: 03/21/2018 PATIENT'S AGE: 62. SEX: Female. PHYSICIAN: Dr. Pretty. FINAL DIAGNOSIS/PRIMARY DIAGNOSIS: Unspecified psychosis. HISTORY OF PRESENT ILLNESS: The patient was admitted to the hospital because of increased agitation, irritability, and taking off her clothes. HOSPITAL COURSE: The patient was crawling on the floor and she was extremely agitated and irritable. The patient also was easily agitated. The patient also was in angry and in irritable mood. She also was not able to follow any directions because of her mental disability. The patient was given Lexapro in a dose of 10 mg every day and Zyprexa 10 mg twice a day. Added Seroquel and the dose adjusted to 10 mg at bedtime. Gradually, the patient's affect was brighter. The patient was less irritable and less agitated. The patient was discharged from the hospital. Physical examination of the patient was monitored by Dr. Donis. AFTER DISCHARGE PLANS: The patient discharged from the hospital and went back to [facility] with plan for followup there. EXPECTED OUTCOME AFTER DISCHARGE: Guarded because of the patient's mental abilities. JOB# [id number]
--- NOTE | 2018-03-22 01:32 | Progress Notes ---
DATE: SUBJECTIVE: Chart reviewed and the patient interviewed. Also discussed the patient's condition with the staff and reviewed records and labs. The patient is still taking off her clothes and she is still unable to follow any of staff directions. The patient also is still restless. The patient also still have inability to communicate her needs because of her mental abilities. On the other hand, the patient is still taking high doses of psychotropic including Seroquel 50 mg twice a day and 100 mg at bedtime. Also taking Zyprexa. ASSESSMENT: The patient is still psychotic and agitated. TREATMENT PLAN: We will increase Seroquel to 70 mg twice a day and 100 mg at bedtime and we will continue to monitor her behavior and her condition closely. [facility]# [id number]
== END 2018-03-21 16:25 | DRG 885 ==
LOC: ER 21:17 → UNDOADMIN 03-10 02:05 → GERO 03-10 02:05
PROVIDERS: ADMIT Psychiatry & Neurology Psychiatry; ATTEND Psychiatry & Neurology Psychiatry
DX: F29 Unspecified psychosis not due to a substance or known physiological condition (principal); G10 Huntington's disease; F02.80 Dementia in other diseases classified elsewhere, unspecified severity, without behavioral disturbance, psychotic disturbance, mood disturbance, and anxiety; I10 Essential (primary) hypertension; J44.9 Chronic obstructive pulmonary disease, unspecified; E78.5 Hyperlipidemia, unspecified; R62.7 Adult failure to thrive; Z66 Do not resuscitate; K21.9 Gastro-esophageal reflux disease without esophagitis; M19.90 Unspecified osteoarthritis, unspecified site; Z82.49 Family history of ischemic heart disease and other diseases of the circulatory system
CPT/HCPCS: 36415-UA; 71045-TC; 80053-TC; 80061-TC; 80320-TC; 80329-TC; 81001-TC; 82550-TC; 83036-90; 83605; 84443-TC; 84484-TC; 85025-TC; 85610-TC; 85730-TC; 86592-TC; 94760; J1200; J1630; J2060; Z7610